=== PATIENT | male | born 1980 | race Caucasian/White ===

== ENCOUNTER 2024-12-31 18:08 | Emergency (ER) | payer OTHER ==
[~2024-12-31] VITALS: Ht 188 cm; Wt 113.7 kg
[2024-12-31] MEDS ORDERED: NITROGLYCERIN 0.4 MG SUBL SL PRN (18:15)
[2024-12-31] MEDS ORDERED: ASPIRIN 81 MG CHEW PO ONE (18:15)
[2024-12-31 18:23] LABS: BASOPHILS 0.3 % (0.2-1.2); EOSINOPHILS 5.4 % (0.8-7.0); LYMPHOCYTES 37.7 % (21.8-53.1); MCH 32.2 PG (25.7-32.2); MCHC 34.3 g/dL (32.3-36.5); MCV 93.8 fL (79.0-92.2); MONOCYTES 7.7 % (5.3-12.2); NEUTROPHILS 48.6 % (34.0-67.9); RBC 4.82 M/uL (4.63-6.08)
[2024-12-31] MEDS ORDERED: ONE DAILY WITH1 EACH PO (18:23)
[2024-12-31] MEDS ORDERED: PROBIOTIC1 EAC3 PO (18:23)
[2024-12-31 18:42] LABS: ALT (SGPT) 20.0 U/L (14-59); AST (SGOT) 18.0 U/L (15-37); GLOMERULAR FILTRATION RATE,EST 87.0 mL/min (>60); PROTEIN, TOTAL 7.0 g/dL (6.4-8.2); UREA NITROGEN 18.0 mg/dL (7-18)
[2024-12-31] MEDS ORDERED: LIDOCAINE & ANTACID 35 ML BTL PO ONE (18:45)
[2024-12-31] MEDS ORDERED: PROTONIX40 MG PO (19:52)
[2024-12-31] MEDS ORDERED: CARAFATE1 GM PO (19:52)
[2024-12-31 20:08] VITALS: BP 121/87
--- NOTE | 2025-01-01 17:50 | EKG ---
[facility] [address] [facility] [facility] [place], [place] [address] Signed Normal sinus rhythm Normal ECG No previous ECGs available Confirmed by Pete Bennett DO ([id number]) on 01/01/2025 5:50:03 PM Electronically Signed By: PETE BENNETT DO 01/01/25 1750 PATIENT NAME: SHELBYSULY Electrocardiogram DATE OF : 84 PHYSICIAN: PETE BENNETT DO REPORT #: [id number] REPORT IS CONFIDENTIAL AND NOT TO BE RELEASED WITHOUT AUTHORIZATION
== END 2024-12-31 20:10 | disposition home or self-care (01) ==
LOC: ED 18:08
PROVIDERS: Emergency Medicine
DX: R07.89 Other chest pain (principal)
CPT/HCPCS: 36415; 71045; 80053; 83735; 84484; 85025; 93005; 93010; 99285-25; A9270